=== PATIENT | female | born 1990 | race Caucasian/White ===

== ENCOUNTER → 2021-04-28 11:23 | Outpatient (CLI) | payer SELFPAY ==
[2016-08-19 17:10] VITALS: BMI 28.0
[2021-05-02 15:31] LABS: HPV Reflexed? NOT INDICATED
== END ==
PROVIDERS: Visit Provider Obstetrics & Gynecology
DX: Z12.4 Encounter for screening for malignant neoplasm of cervix (principal)
CPT/HCPCS: 88175; G0145

== ENCOUNTER 2021-12-15 10:37 | Outpatient (CLI) | payer OTHER, SELFPAY ==
[2021-12-15 12:34] LABS: Absolute Lymphocyte Count 2.05 X10^3/uL (0.83-4.51); Absolute Neutrophil Count 7.9 X10^3/uL (2.0-7.7); Basophil# 0.04 X10^3/uL; Basophil% 0.4 % (0-1); Eosinophil# 0.18 X10^3/uL; Eosinophils% 1.6 % (0-5); Hematocrit 37.9 % (37-47); Lymphocyte # 2.05 X10^3/ul (0.83-4.51); Lymphocyte % 18.6 % (19-41); Mean Corp Hgb Conc 34.3 g/dL (32-36); Mean Corpuscular Hgb 30.2 pg (27.0-32.0); Mean Corpuscular Volume 88.1 fL (81-99); Monocyte# 0.78 X10^3/uL; Monocyte% 7.1 % (0-10); NRBC Flagged by Analyzer 0 % (0-5); Neutrophil # 7.89 X10^3/uL (2.7-7.7); Neutrophil % 71.6 % (47-70); Platelet Count 266 K/mm3 (150-450); RBC Distribution Width CV 12.8 % (11.6-14.6); RBC Distribution Width SD 41.3 fl (35.1-43.9)
[2021-12-15 12:41] LABS: Color, Urine Yellow (Yellow); Glucose, Dipstick Normal (Normal); Ketone-Dipstick Negative (Negative); Leukocyte Esterase-Dipstick 25 /ul (Negative); Nitrite-Dipstick Negative (Negative); Occult Blood-Urine Negative /ul (Negative); Protein-Dipstick Negative (Negative); Specific Gravity, Urine 1.015 (1.002-1.030); Urine Bilirubin Dipstick Negative (Negative); Urine Clarity Sl. Cloudy (Clear); Urine Urobilinogen Normal (Normal)
[2021-12-15 13:13] LABS: Thyroid Stim Hormone (TSH) 1.41 uIU/mL (0.358-3.74)
[2021-12-15 13:26] LABS: HIV - WCH Non-Reactive (Nonreactive); Hepatitis B Surface Antigen Non-Reactive (Nonreactive); Hepatitis C Antibody Non-Reactive (Nonreactive); Rubella IgG Equiv (Nonreactive); Syphilis Antibodies Non-reactive
[2021-12-17 00:06] LABS: Chlamydia By Nucleic Acid AMP Negative (Negative)
[2021-12-17 14:34] LABS: Gonococcus By Nucleic Acid AMP Negative (Negative)
== END 2021-12-15 23:59 | disposition home or self-care (01) ==
PROVIDERS: Visit Provider Obstetrics & Gynecology
DX: Z34.81 Encounter for supervision of other normal pregnancy, first trimester (principal); Z11.3 Encounter for screening for infections with a predominantly sexual mode of transmission
CPT/HCPCS: 36415; 81002; 84443; 85025; 86703; 86762; 86780; 86803; 87077; 87086; 87088; 87186; 87340; 87491; 87591

== ENCOUNTER → 2022-05-10 | Outpatient (CLI) | payer OTHER, SELFPAY ==
[2022-05-10 11:12] LABS: Hematocrit 34.5 % (37-47); Hemoglobin 11.5 g/dL (12.0-15.0); Mean Corp Hgb Conc 33.3 g/dL (32-36); Mean Platelet Vol. 9.7 fl (6.2-12.0); Platelet Count 218 K/mm3 (150-450); RBC Distribution Width CV 13.3 % (11.6-14.6); RBC Distribution Width SD 45.1 fl (35.1-43.9); Red Blood Count 3.71 M/mm3 (4.2-5.4)
[2022-05-10 11:17] LABS: Glucose Challenge Gest 1H 50g 108 mg/dL (70-140)
== END | disposition home or self-care (01) ==
PROVIDERS: Visit Provider Obstetrics & Gynecology
DX: Z34.83 Encounter for supervision of other normal pregnancy, third trimester (principal)
CPT/HCPCS: 36415; 82950; 85027

== ENCOUNTER 2022-07-05 11:09 | Outpatient (CLI) | payer OTHER, SELFPAY | END 2022-07-05 23:59 | disposition home or self-care (01) | LOC: LABSPEC 11:10 | PROVIDERS: Visit Provider Student in an Organized Health Care Education/Training Program | DX: Z36.85 Encounter for antenatal screening for Streptococcus B (principal) | CPT/HCPCS: 87077; 87081; 87186 ==

== ENCOUNTER 2022-07-14 16:18 | Inpatient (IN) | payer SELFPAY, OTHER ==
[2022-07-14] VITALS (17 sets, daily range): BP systolic 89–137; BP diastolic 50–86; PULSE 70–107; RESP 13–18; TEMP 36.1–37.1; O2SAT 95–100; BMI 35.0
[2022-07-14] MEDS: Lactated Ringers 1,000 ML 999 ML IV (16:30)
--- NOTE | 2022-07-14 16:33 | PCM.HP.BLA ---
History and Physical Date of Admission: 07/14/22 Chief complaint: Vaginal bleeding History present illness: 32-year-old at 38 weeks and 3 days with RENETTA: 07/25/2022 arrives with spotting when she wipes. Denies headache, visual changes, chest pain, shortness of breath, nausea vomit, right upper quadrant pain. Patient states good movement. Obstetric history: G1: 40-week primary section for failure to progress G2: Term complicated by laceration and hemorrhage G3: Current Past medical history: Pots disease Medication: Midodrine Past surgical history: Primary Allergies: No known drug allergies Social history: Denies history DVT or PE Review of systems: Besides above pertinent positives a full review of systems was performed and found to be negative Physical exam: Vitals: Blood pressure 137/86 pulse 84 temp 97.0 Fahrenheit General: Normal-appearing no acute distress none HEENT: Normocephalic atraumatic no cervical of adenopathy Cardiac/respiratory: No successor muscles, nonlabored breathing Abdomen: Soft, nontender, gravid Extremities: No peripheral edema normal peripheral pulses Psych: Normal affect normal demeanor nonpressured speech Labs: Pending Assessment plan: 32-year-old G3, P2 at 38 weeks and 3 days checked by nursing and found to be 5 cm and then changed to 7 cm. Labor desires section with history of laceration and hemorrhage. Patient understands option to TOLAC risk benefits alternatives patient declines and desires primary section along with tubal ligation for permanent sterilization. Patient understands the risk of the procedure include but are not limited to visceral or vascular injury, prolonged hospitalization, blood loss and need for transfusion, reoperation. Patient states understanding and wished to proceed. All questions were answered and consent was signed. For primary now 2 g Ancef and 500 mg of azithromycin
[2022-07-14] MEDS: Sodium Citrate/Citric Acid 30 ML UDC PO (16:43)
[2022-07-14 16:44] LABS: Absolute Neutrophil Count 9.3 X10^3/uL (2.0-7.7); Basophil# 0.04 X10^3/uL; Basophil% 0.3 % (0-1); Eosinophil# 0.17 X10^3/uL; Eosinophils% 1.3 % (0-5); Hematocrit 37.9 % (37-47); Hemoglobin 12.8 g/dL (12.0-15.0); Lymphocyte % 17.8 % (19-41); Mean Corp Hgb Conc 33.8 g/dL (32-36); Mean Corpuscular Hgb 30.5 pg (27.0-32.0); Mean Corpuscular Volume 90.5 fL (81-99); Mean Platelet Vol. 9.8 fl (6.2-12.0); Monocyte# 0.96 X10^3/uL; Monocyte% 7.4 % (0-10); NRBC Flagged by Analyzer 0 % (0-5); Neutrophil # 9.31 X10^3/uL (2.7-7.7); Platelet Count 233 K/mm3 (150-450); RBC Distribution Width CV 14.5 % (11.6-14.6); RBC Distribution Width SD 47.3 fl (35.1-43.9); Red Blood Count 4.19 M/mm3 (4.2-5.4); White Blood Count 12.9 K/mm3 (4.4-11.0)
[2022-07-14] MEDS: Acetaminophen 500 MG Tablet 1000 MG PO ×2 (16:44→22:43)
[2022-07-14] MEDS: Cefazolin 2 GM in 0.9% Normal Saline 100 ML IV (16:52)
--- NOTE | 2022-07-14 17:12 | FALS_PTH ---
PATIENT: VINNIE MORENO I LOC: WP U#:[id number] AGE/SX: 32/F ROOM: 008 RE07/14/[address]: Dr. Eliecer Moreno MD : 1990 BED: 1 DIS: 07/15/2022 SPEC #: [id number] RECD: 07/15/22 08:12 STATUS: TSERING VICKI #: [id number] CANDACE: 07/14/22 17:[address]: Eliecer Moreno DEPT: SURGICAL PATHOLOGY RECD BY: Luana Souza Tissues: Fallopian tube Procedures: Surgery Specimen Level II HEADER OPERATION: Tubal ligation PRE-OP DIAGNOSIS: Sterilization TISSUE SUBMITTED: Fallopian tubes, right tube has suture MICROSCOPIC DIAGNOSIS Bilateral fallopian tubes, salpingectomy: Bilateral fallopian tubes, no pathologic diagnosis. HAYDER:priscilla 07/18/2022 MICROSCOPIC DESCRIPTION Slides are reviewed. GROSS DESCRIPTION Received in fixative is one container labeled with the patient's name and designated bilateral fallopian tubes. The specimen consists of bilateral fallopian tubes including fimbrial ends measuring 8 cm in length and 0.6 cm in diameter and 7 cm in length and 0.9 cm in diameter. The fallopian tubes are not identified as right or left. A suture is present in the container, however, no suture is noted on the fallopian tube. Sections reveal unremarkable cut surfaces. 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 / SJ:rg 07/15/2022 TC:4 [facility]: [id number] x2
--- NOTE | 2022-07-14 17:46 | EX.PCM.OBRPT ---
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 Normal uterus, tubes, and ovaries. Consent: Patient G3, P2 at 38 weeks with history of section desires repeat section bilateral tubal ligation arrives in labor and declines TOLAC and elects for repeat low-transverse section Via Pfannenstiel incision and bilateral salpingectomy. Patient with signs risk of procedure include but are not limited to visceral or vascular injury, prolonged hospitalization, blood loss and need for transfusion, reoperation. Patient stated understanding and wished to proceed. All questions were answered and consent was signed. Procedure: Patient was brought back to the OR where spinal anesthesia was found to be adequate. 2 g of Ancef and 500 mg of azithromycin were given for infection prophylaxis. Patient was prepared and draped in a supine position with leftward tilt. A Pfannenstiel incision made at the skin with a scalpel. The incision was carried down to the fascia with a scalpel. The fascia was excised and extended laterally. Rectus muscle was dissected at the midline down to the level of the pubic symphysis. Preperitoneal fatty tissue was noted and peritoneum was entered bluntly. Peritoneum was extended superiorly and inferiorly with good visualization of bladder. Bladder blade was inserted and vesicouterine peritoneum was identified. Low transverse hysterotomy incision was made. Hand was placed into the incision and gentle fundal pressure was applied once the head was brought into the incision and the bladder blade was removed. Head and shoulders were delivered with ease. Cord was cut and clamped. They was handed off to nursing. Placenta was delivered via cord traction and fundal massage. Uterus was exteriorized and wiped out with dry laparotomy sponge in order removing placental membranes. IV oxytocin was initiated to facilitate uterine contractions. Uterus was closed in a continuous running fashion. Asbcih-mg-[id number]'s were used for hemostasis. Good hemostasis was noted. Right fallopian tube was identified to the fimbria and the mesosalpinx was cut and cauterized with LigaSure device. In a similar fashion the left fallopian tube was identified out to the fimbria and the mesosalpinx was cut and cauterized with LigaSure device. surgical sites were hemostatic bilaterally. bilateral fallopian tubes were sent to pathology. Uterus was placed back in the abdominal cavity and reinspected. Good hemostasis was noted. Fascia was closed in a continuous running fashion with oh looped PDS. Subcutaneous irrigation was performed and good hemostasis was noted. Skin was closed in a subcuticular fashion. All counts were correct x2. Patient tolerated procedure well and was brought to recovery in a stable condition.
[2022-07-14] MEDS: Oxytocin 30 units/NS 500 ml 30 UNITS/500 ML IV.SOLN 167 UNITS IV (18:30)
[2022-07-14] MEDS: 0.9% Saline Lock 10 ML Syringe IV (18:30)
[2022-07-14] MEDS: Ketorolac 30 MG/ML Syringe IV (18:30)
--- NOTE | 2022-07-14 19:00 | NURSING ---
x3 quarter sized clots noted on fundal check, bleeding remains scant and fundus firm and 1 below. RN continuing to monitor bleeding and assess need for methergine.
[2022-07-14] MEDS: Methylergonovine 0.2 MG/ML Ampul IM (19:30)
[2022-07-14 22:14] LABS: Pathology Specimen OB SEE PATHOLOGY REPORT
[2022-07-14] MEDS: Lactated Ringers 1,000 ML 100 ML IV (22:42)
[2022-07-15 00:20] VITALS: BP 100/70; PULSE 81; RESP 16; TEMP 36.9; O2SAT 98
[2022-07-15] MEDS: Ketorolac 30 MG/ML Syringe IV ×3 (00:39→12:56)
[2022-07-15 02:22] VITALS: BP 100/60; PULSE 72; RESP 16; TEMP 36.8; O2SAT 100
--- NOTE | 2022-07-15 04:37 | DCINST_ITS ---
Discharge Instructions Diet Discharge Diet: No restrictions Activity Discharge Activity: Return to Normal Activity, May Drive, May Shower and - (no tub baths for two weeks) May resume sexual activity in: 4-6 weeks Lifting Restrictions: no lifting over 25 pounds for two to three weeks Dressing / Incision Call your doctor if your incision/area has: Continuous Slow Oozing and Foul Smelling Discharge Call your doctor if you observe: Fever of 101 or Higher, Shortness of breath and Chest pain Follow Up Care Please Follow Up With: Eliecer Moreno MD When: 2 weeks postoperatively Test Results: Test results from this visit will be discussed in further detail at your follow- up appointment, if applicable. Discharge Plan Admission Admit Date/Time: 07/14/22 16:18 Primary Reason for Your Visit: labor Attending Provider: Eliecer Moreno Instructions Additional Instructions / Restrictions: Regular diet. No lifting over 25 pounds for 2 to 3 weeks. No tub baths for 2 weeks. No intercourse for 4 to 6 weeks. Call if fevers, chills, chest pain. Follow-up 2 weeks postoperatively Discharge Orders/Prescriptions Prescriptions: New oxycodone 5 mg Tablet 5 mg PO Q6H PRN PRN (Reason: Pain Score 7-10) 4 Days Qty: 16 0RF Continued midodrine 5 mg Tablet 5 mg PO TID [id number] 1 mg Tablet 1 tab PO DAILY
--- NOTE | 2022-07-15 04:38 | PN.OBGYN_ITS ---
Subjective Subjective No overnight complaints. Pain controlled Objective Data Objective Data Vital Signs: Vital Signs Temp Pulse Resp BP Pulse Ox O2 Del Method 98.3 F 72 16 100/60 100 Room Air 07/15/22 02:22 07/15/22 02:22 07/15/22 02:22 07/15/22 02:22 07/15/22 02:22 07/15/22 02:22 Oxygen Delivery Method Room Air Weight: 217 lb 3.2 oz Body Mass Index (BMI) 35.0 Intake & Output: Intake and Output for Last 24 Hours 07/13/22 07/14/22 07/15/22 23:59 23:59 23:59 Intake Total 1564.3 / 1564.3 Output Total 250 / 250 Balance 1314.3 / 1314.3 Lab / Micro Data Result Diagrams: 07/14/22 16:30 Labs: Laboratory Results - last 24 hr 07/14/22 16:30: WBC 12.9 H, RBC 4.19 L, Hgb 12.8, Hct 37.9, MCV 90.5, MCH 30.5, MCHC 33.8, RDW Std Deviation 47.3 H, RDW Coeff of Norberto 14.5, Plt Count 233, MPV 9 .8, Immature Gran % (Auto) 1.200 H, Neut % (Auto) 72.0 H, Lymph % (Auto) 17.8 L, Grundy % (Auto) 7.4, Eos % (Auto) 1.3, Baso % (Auto) 0.3, Absolute Neuts (auto) 9.3 H, Absolute Lymphs (auto) 2.30, Nucleated RBC % 0 07/14/22 16:30: Blood Type A POSITIVE, Antibody Screen NEGATIVE Micro: Microbiology 07/14/22 16:40 Nasal Secretion SARS-CoV-2 Antigen (Rapid) - Final Physical Exam Const alert, oriented x3, no apparent distress, average body habitus, healthy appearing and well nourished HEENT normocephalic and moist oral mucous membranes Eyes PERRL Resp normal respiratory effort, no retractions and no use of accessory muscles GI GI Narrative: Soft, nontender, uterus firm below umbilicus. Bandage clean dry and intact Extremity normal to inspection, full ROM and no clubbing, cyanosis or edema Neuro moves all extremities and no focal motor deficits Psych mental status grossly normal, affect normal, speech normal and activity/motor behavior normal Assessment & Plan (1) delivery delivered: PLAN: Postop day 1 status post repeat section bilateral tubal ligation. Breast-feeding. Pain well controlled. Likely home tomorrow
[2022-07-15 04:48] VITALS: BP 106/63; PULSE 77; RESP 16; TEMP 36.2; O2SAT 100
[2022-07-15] MEDS: Acetaminophen 500 MG Tablet 1000 MG PO ×3 (05:31→18:29)
[2022-07-15] MEDS: Enoxaparin 40 MG/0.4 ML Syringe SC (05:32)
[2022-07-15] MEDS: Midodrine HCl 5 MG Tablet PO ×3 (05:32→18:29)
[2022-07-15 05:33] LABS: Hematocrit 30.1 % (37-47); Mean Corp Hgb Conc 33.2 g/dL (32-36); Mean Corpuscular Hgb 30.4 pg (27.0-32.0); Mean Corpuscular Volume 91.5 fL (81-99); Mean Platelet Vol. 9.7 fl (6.2-12.0); Platelet Count 177 K/mm3 (150-450); RBC Distribution Width CV 14.5 % (11.6-14.6); RBC Distribution Width SD 47.9 fl (35.1-43.9); Red Blood Count 3.29 M/mm3 (4.2-5.4); White Blood Count 17.2 K/mm3 (4.4-11.0)
[2022-07-15 08:00] VITALS: BP 114/69; PULSE 79; RESP 15; O2SAT 96
[2022-07-15] MEDS: Senna/Docusate Sodium 1 Tablet PO (10:27)
[2022-07-15 11:49] VITALS: BP 101/63; PULSE 82; RESP 16; TEMP 36.4; O2SAT 96
[2022-07-15] MEDS: 0.9% Saline Lock 10 ML Syringe IV (12:56)
[2022-07-15 16:10] VITALS: BP 117/73; PULSE 80; RESP 16; TEMP 36.5; O2SAT 95
[2022-07-15] MEDS: Ibuprofen 600 MG Tablet PO (19:26)
== END 2022-07-15 20:05 | disposition home or self-care (01) | DRG 785 ==
LOC: WPOUT 16:19 → WP 16:19
PROVIDERS: Admitting Provider Obstetrics & Gynecology; Visit Provider Obstetrics & Gynecology
DX: O26.853 Spotting complicating pregnancy, third trimester (principal); O34.211 Maternal care for low transverse scar from previous cesarean delivery; Z30.2 Encounter for sterilization; Z37.0 Single live birth; Z3A.38 38 weeks gestation of pregnancy
CPT/HCPCS: 59025; 59050; 85025; 85027; 86850; 86900; 86901; 87811; 88302; 99218; J7120; A4216; G0378; J2405